=== PATIENT | female | born 1990 | race Caucasian/White ===

== ENCOUNTER 2022-12-19 15:45 | Outpatient (CLI) | payer OTHER ==
[~2022-12-19] VITALS: Ht 162.6 cm; Wt 72.3 kg
--- NOTE | 2022-12-19 15:50 | NUR ---
PT SENT OVER FROM OFFICE FOR BLOOD PRESSURE CHECK AND LABS BY DR PALAFOX. PT AMBULATORY TO LR6. CHANGED INTO CLEAN GOWN. FHR MONITOR/TOCO APPLIED. PT DENIES VAGINAL BLEEDING, LEAKING OF FLUID, REGULAR CONTRACTIONS, OR DECREASED MOVEMENT.
[2022-12-19] MEDS ORDERED: WELLBUTRIN XL300 M1 PO (16:06)
[2022-12-19] MEDS ORDERED: PRENATAL TABLET PO (16:06)
[2022-12-19 16:30] VITALS: BP 134/87; PULSE 77; TEMP 98.2
[2022-12-19 16:56] LABS: COLLECTION METHOD CLEAN CATCH
[2022-12-19 17:00] VITALS: BP 120/80; PULSE 77
[2022-12-19 17:03] LABS: BASO % 0.3 % (0.0-2.0); EOS % 0.3 % (0.0-4.0); GRAN # 7.6 K/mm3 (1.4-6.5); GRAN % 75.6 % (42.2-75.2); HEMATOCRIT 39.7 % (37.0-47.0); LYMPH # 1.9 K/mm3 (1.2-3.4); LYMPH % 19.3 % (20.0-51.0); MEAN CELL VOLUME 95 fl (80.0-100.0); MEAN CORPUSCULAR HEMOGLOBIN 33 pg (27-31); MEAN CORPUSCULAR HGB CONC 35 g/dl (33.0-37.0); MEAN PLATELET VOLUME 12.2 fl (7.4-10.4); MONO # 0.4 K/mm3 (0.1-0.6); MONO % 4.1 % (1.7-9.3); PLATELET COUNT 142 K/mm3 (130-400); REDCELL DISTRIBUTION WIDTH-CV 12.2 % (11.5-14.5)
[2022-12-19 17:08] LABS: URINE APPEARANCE Clear (CLEAR/HAZY); URINE COLOR Yellow (YELLOW)
[2022-12-19 17:09] LABS: URINE BLOOD TRACE-LYSED (NEGATIVE); URINE GLUCOSE Negative (NEGATIVE); URINE KETONE Negative (NEGATIVE); URINE NITRATE Negative (NEGATIVE); URINE PROTEIN(semi-quant) Negative (NEGATIVE); URINE UROBILINOGEN 0.2 E.U/dL (0.2-1.0)
[2022-12-19 17:13] LABS: SQUAMOUS EPITHELIAL None Seen /hpf (0-10); URINE BACTERIA Rare /hpf (NONE SEEN); URINE RBC None Seen /hpf (0-2); URINE WBC 0-2 /hpf (0-2)
[2022-12-19 17:19] LABS: ALBUMIN 3.1 gm/dL (3.5-5.0); BILIRUBIN,TOTAL 0.3 mg/dL (0.2-1.2); CALCIUM 9.2 mg/dL (8.4-10.2); CREATININE, serum 0.91 mg/dL (0.57-1.11); TOTAL PROTEIN 6.9 gm/dL (6.2-8.1)
[2022-12-19 17:30] VITALS: BP 137/102; PULSE 93
--- NOTE | 2022-12-19 17:35 | NUR ---
DR PALAFOX ON UNIT REVIEWING LABS AND DISCUSSING PLAN OF CARE WITH PT. INDUCTION SCHEDULED FOR NEXT WEEK. PT GETTING BLOOD PRESSURE CHECK IN OFFICE ON SATURDAY.
[2022-12-19 17:53] VITALS: BP 153/98; PULSE 85
== END 2022-12-19 18:05 | disposition home or self-care (01) ==
LOC: LDRO 15:45
PROVIDERS: Obstetrics & Gynecology
DX: O16.3 Unspecified maternal hypertension, third trimester (principal); Z3A.39 39 weeks gestation of pregnancy

== ENCOUNTER 2022-12-20 09:36 | Inpatient (IN) | payer OTHER ==
[2022-12-20] VITALS (26 sets, daily range): BP systolic 113–152; BP diastolic 59–97; PULSE 67–112; TEMP 97.5–98.2
[~2022-12-20] VITALS: Ht 162.6 cm; Wt 72.3 kg
[~2022-12-20 09:36] MED LIST: PRENATAL TABLET PO; WELLBUTRIN XL300 M1 PO
[2022-12-20 11:13] LABS: COLLECTION METHOD CLEAN CATCH
[2022-12-20 11:19] LABS: BASO # 0.1 K/mm3 (0.0-0.2); BASO % 0.4 % (0.0-2.0); EOS % 0.2 % (0.0-4.0); GRAN # 12.3 K/mm3 (1.4-6.5); GRAN % 81.4 % (42.2-75.2); HEMATOCRIT 41.1 % (37.0-47.0); HEMOGLOBIN 14.8 g/dl (12.5-16.0); LYMPH # 2.1 K/mm3 (1.2-3.4); LYMPH % 14.1 % (20.0-51.0); MEAN CELL VOLUME 94 fl (80.0-100.0); MEAN CORPUSCULAR HEMOGLOBIN 34 pg (27-31); MEAN CORPUSCULAR HGB CONC 36 g/dl (33.0-37.0); MEAN PLATELET VOLUME 12.5 fl (7.4-10.4); MONO # 0.5 K/mm3 (0.1-0.6); MONO % 3.6 % (1.7-9.3); PLATELET COUNT 168 K/mm3 (130-400); RED BLOOD COUNT 4.38 M/mm3 (4.10-5.30); REDCELL DISTRIBUTION WIDTH-CV 12.1 % (11.5-14.5)
[2022-12-20 11:20] LABS: PH 5.5 (5.0-8.5); URINE APPEARANCE Clear (CLEAR/HAZY); URINE BLOOD 1+ (NEGATIVE); URINE COLOR Yellow (YELLOW); URINE GLUCOSE Negative (NEGATIVE); URINE KETONE Negative (NEGATIVE); URINE NITRATE Negative (NEGATIVE); URINE PROTEIN(semi-quant) Negative (NEGATIVE); URINE UROBILINOGEN 0.2 E.U/dL (0.2-1.0)
[2022-12-20 11:21] LABS: MUCOUS Present (NOT PRESENT); SQUAMOUS EPITHELIAL 0-2 /hpf (0-10); URINE BACTERIA Rare /hpf (NONE SEEN); URINE RBC 0-2 /hpf (0-2); URINE WBC 0-2 /hpf (0-2)
[2022-12-20 11:36] LABS: ALBUMIN 3.2 gm/dL (3.5-5.0); BILIRUBIN,TOTAL 0.4 mg/dL (0.2-1.2); CREATININE, serum 0.89 mg/dL (0.57-1.11); POTASSIUM 4.1 mmol/L (3.5-4.5)
--- NOTE | 2022-12-20 12:12 | NUR ---
PT SITTING UPRIGHT ON THE EDGE OF BED FOR EPIDURAL PLACEMENT. 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 EFM AND TOCO TRACING INTERMITTENLY DUE TO MATERNAL POSITIONING. PULSE OX APPLIED TRACING MATERNAL HR. BLOOD PRESSURE CYCLING Q5 MINS AND LR INFUSING. SINGLE SHOT DOSE AT 1212. PT TOLERATED PROCEDURE WELL. REPORTING DECREASED PAIN AND DISCOMFORT WITH CONTRACTIONS. WILL CONTINUE WITH PLAN OF CARE.
--- NOTE | 2022-12-20 13:24 | NUR ---
DR. THOMPSON AT BEDSIDE. AROM AT 1324, LARGE AMOUNT OF CLEAR FLUID NOTED. SVE /0. WILL CONTINUE PLAN OF CARE.
--- NOTE | 2022-12-20 13:46 | NUR ---
DR. THOMPSON AT BEDSIDE. SVE /0. PT PLACED IN RIGHT STIRRUP TO COMPLETE DILATION PER DR. THOMPSON. FHT BASELINE SHIFT TO THE 100-110S. DR. THOMPSON AWARE.
--- NOTE | 2022-12-20 13:52 | NUR ---
FHT 100-110S PT PLACED IN HANDS AND KNEES, NO CHANGE IN HEART TONES NOTED. 1412- MOTHER LL RIGHT STIRRUP. FHT REMAIN 110S. DR. THOMPSON AWARE AND COMFORTABLE WITH FHT.
--- NOTE | 2022-12-20 15:45 | NUR ---
PT TRANSFERED TO ROOM VIA [facility]. NO COMPLAINTS OF LIGHTHEADNESS. PT FEELING STABLE. ORIENTED TO ROOM.
[2022-12-21] VITALS: BP 129/80; PULSE 71; TEMP 98.4
[2022-12-21 04:00] VITALS: BP 142/90; PULSE 75; TEMP 98
[2022-12-21 07:45] VITALS: BP 127/87; PULSE 76; TEMP 98.2
--- NOTE | 2022-12-21 09:09 | NUR ---
Initial visit; Parents thanked for offering congratulations and a Special [place] for their son. thanked family for choosing [facility] to which they replied that they have had a wonderful experience.
[2022-12-21 13:18] VITALS: BP 127/82; PULSE 85; TEMP 97.8
[2022-12-21 16:48] VITALS: BP 122/80; PULSE 83; TEMP 97.8
== END 2022-12-21 20:30 | disposition home or self-care (01) | DRG 807 ==
LOC: LDRO 09:36 → OB 11:21 → LDR 11:21 → OB 15:45 → LDR 16:08 → OB 12-21 20:30
PROVIDERS: ADMIT Obstetrics & Gynecology
PROC: 10E0XZZ Delivery of Products of Conception, External Approach (ICD-10-PCS; principal; 2022-12-20)
PROC: 10907ZC Drainage of Amniotic Fluid, Therapeutic from Products of Conception, Via Natural or Artificial Opening (ICD-10-PCS; 2022-12-20)
PROC: 0UQMXZZ Repair Vulva, External Approach (ICD-10-PCS; 2022-12-20)
DX: O99.344 Other mental disorders complicating childbirth (principal); Z37.0 Single live birth; F41.9 Anxiety disorder, unspecified; Z3A.39 39 weeks gestation of pregnancy; F32.A Depression, unspecified; O69.81X0 Labor and delivery complicated by cord around neck, without compression, not applicable or unspecified; O70.0 First degree perineal laceration during delivery; O76 Abnormality in fetal heart rate and rhythm complicating labor and delivery; Z23 Encounter for immunization
CPT/HCPCS: J7120